=== PATIENT | male | born 1995 | race Caucasian/White ===

== ENCOUNTER 2020-11-14 18:00 | Emergency (ER) | payer OTHER ==
[~2020-11-14] VITALS: Ht 172.7 cm; Wt 72.6 kg
--- NOTE | 2020-11-14 18:31 | NUR ---
[email or web address], medical screening exam in progress
--- NOTE | 2020-11-14 19:01 | NUR ---
Patient discharged to home in stable condition with brisk steady gait. Written and verbal after care instructions given to patient. Patient verbalizes understanding of instructions. Stressed follow up with workman's compensation provider or return to ER for worsening s/s.
== END 2020-11-14 19:01 | disposition home or self-care (01) ==
LOC: ER 18:06
DX: M54.5 Low back pain (principal); S40.011A Contusion of right shoulder, initial encounter; X50.0XXA Overexertion from strenuous movement or load, initial encounter; Y93.F2 Activity, caregiving, lifting; Y92.238 Other place in hospital as the place of occurrence of the external cause; Y99.0 Civilian activity done for income or pay
CPT/HCPCS: A4663

== ENCOUNTER 2021-08-08 01:28 | Emergency (ER) | payer BC, OTHER ==
[~2021-08-08] VITALS: Ht 172.7 cm; Wt 72.6 kg
[2021-08-08] MEDS ORDERED: TETRACAINE HCL 0.5% OPHT DROP 2 ML BOTTLE ONE (01:43)
--- NOTE | 2021-08-08 01:45 | NUR ---
Dr. Villalobos at bedside for MSE.
[2021-08-08] MEDS ORDERED: FLUORESCEIN SODIUM 1 MG STRIP ONE (02:00)
[2021-08-08] MEDS ORDERED: TETRACAINE HCL 0.5% OPHT DROP 2 ML BOTTLE OP ONE (02:00)
[2021-08-08] MEDS ORDERED: FLUORESCEIN SODIUM 1 MG STRIP OP ONE (02:00)
[2021-08-08] MEDS ORDERED: KETO5DRO39 LEFTEYE (02:17)
[2021-08-08 02:29] VITALS: BP 131/74
--- NOTE | 2021-08-08 02:29 | NUR ---
Patient discharged to home in stable condition. Written and verbal after care instructions given. Patient verbalizes understanding of instructions. Stressed follow up or return to ER for worsening s/s. Patient out of ER with steady gait, no acute signs of distress, VSS, all belongings taken.
== END 2021-08-08 02:30 | disposition home or self-care (01) ==
LOC: ER 01:30
DX: H57.11 Ocular pain, right eye (principal)
CPT/HCPCS: A4663

== ENCOUNTER 2021-09-07 16:40 | Emergency (ER) | payer BC, OTHER ==
[~2021-09-07] VITALS: Ht 172.7 cm; Wt 72.6 kg
[~2021-09-07 16:40] MED LIST: KETO5DRO39 LEFTEYE
[2021-09-07 17:05] LABS: MEAN CORPUSCULAR VOLUME 91.9 fL (73.0-96.2); PLATELET COUNT (AUTO) 281 K/uL (152-348)
[2021-09-07 17:11] LABS: CREATININE 0.9 mg/dL (0.6-1.3); POTASSIUM 4.7 mmol/L (3.5-5.1)
--- NOTE | 2021-09-07 18:00 | NUR ---
Patient discharged to home in stable condition. Written and verbal after care instructions given. Patient verbalizes understanding of instructions. Stressed follow up or return to ER for worsening s/s.pt walks i nsteady gait. pt says feels better.
[2021-09-07 18:40] VITALS: BP 119/79
== END 2021-09-07 18:00 | disposition home or self-care (01) ==
LOC: ER 16:41
DX: I48.0 Paroxysmal atrial fibrillation (principal); R00.2 Palpitations; H40.9 Unspecified glaucoma
CPT/HCPCS: 36415; 70030-TC; 71045; 85025; 93005; A4663; J7030

== ENCOUNTER 2021-09-15 16:40 | Outpatient (CLI) | payer BC, OTHER | END 2021-09-15 23:59 | disposition home or self-care (01) | LOC: US 16:40 | PROVIDERS: ATTEND Internal Medicine Interventional Cardiology | DX: E05.00 Thyrotoxicosis with diffuse goiter without thyrotoxic crisis or storm (principal); I08.2 Rheumatic disorders of both aortic and tricuspid valves; Q21.1 Atrial septal defect | CPT/HCPCS: 36415; 84443; 93307 ==

== ENCOUNTER 2021-09-25 13:26 | Day surgery (SDC) | payer BC, OTHER ==
[2021-09-25] MEDS ORDERED: LIDOCAINE-MPF 2% 5 ML VIAL IJ ONE (13:27)
[2021-09-25] MEDS ORDERED: PROPOFOL 200 MG/20 ML BOTTLE IV ONE (13:27)
[2021-09-25 14:19] LABS: CREATININE 0.9 mg/dL (0.6-1.3); POTASSIUM 4.7 mmol/L (3.5-5.1)
[2021-09-25 14:23] LABS: *BILIRUBIN,URIN NEGATIVE (NEGATIVE); *BLOOD, URINE NEGATIVE (NEGATIVE); *CLARITY,URINE CLEAR (CLEAR); *COLOR,URINE YELLOW (YELLOW); *KETONES,URINE NEGATIVE (NEGATIVE); *UROBILINOGEN,URINE 0.2 E.U./dl (NORMAL); LEUKOCYTE ESTERASE ,URINE NEGATIVE (NEGATIVE); NITRITE, URINE NEGATIVE (NEGATIVE); PH,URINE 5.5 (5.0-8.0); UGLUCOSE NEGATIVE (NEGATIVE)
[2021-09-25 14:42] LABS: HEMATOCRIT 42.9 % (36.7-47.1); MEAN CORPUSCULAR HEMOGLOBIN 31.6 uug (23.8-33.4); MEAN CORPUSCULAR VOLUME 91.6 fL (73.0-96.2); PLATELET COUNT (AUTO) 226 K/uL (152-348)
[2021-09-25] MEDS ORDERED: MIDAZOLAM HCL 2 MG/2 ML VIAL ONE (15:08)
== END 2021-09-25 16:25 | disposition home or self-care (01) ==
LOC: DS 13:26
PROVIDERS: ATTEND Internal Medicine Interventional Cardiology
DX: I48.0 Paroxysmal atrial fibrillation (principal); Q21.1 Atrial septal defect; Z79.899 Other long term (current) drug therapy; Z98.890 Other specified postprocedural states; Z20.822 Contact with and (suspected) exposure to COVID-19
CPT/HCPCS: 36415; 80048; 81003; 85025; 87426; 93005; 93312; J2250; J7120; A4663; J3490